=== PATIENT | male | born 1990 | race African-American/Black ===

== ENCOUNTER 2017-10-11 06:02 | Emergency (ER) | payer MEDICARE, MEDICAID ==
[2017-10-11 06:35] LABS: #Basophils 0.1 thou/uL (0.0-0.2); #Eosinphils 0.1 thou/uL (0.0-0.7); #Lymphocytes 3.6 thou/uL (1.20-3.40); #Monocytes 0.8 thou/uL (0.11-0.59); %Basophils 1.2 % (0.0-1.0); %Eosinophils 1.2 % (0.0-10.0); %Lymphocytes 41.7 % (21.0-51.0); %Monocytes 9.7 % (0.0-10.0); Hematocrit 48.1 % (42.0-52.0); Mean Platelet Volume 7.8 fL (7.4-10.4); Red Blood Cell (RBC) Count 5.71 mill/uL (4.70-6.10); White Blood Cell (WBC) Count 8.7 thou/uL (4.8-10.8)
[2017-10-11 06:49] LABS: ALT (SGPT) 24 U/L (8-55); AST (SGOT) 19 U/L (5-34); Alkaline Phosphatase 84 U/L (40-150); Anion Gap 14 mmol/L (10-20); BUN (Urea Nitrogen) 12 mg/dL (8.9-20.6); Bilirubin, Total 0.4 mg/dL (0.2-1.2); CK (CPK) 168 U/L (30-200); Calc. Creatinine Clearance 0 mL/min (70-130); Calcium 9.7 mg/dL (7.8-10.44); Carbon Dioxide 24 mmol/L (22-29); Chloride 105 mmol/L (98-107); Estimated GFR-MDRD 79; Globulin 4.2 g/dL (2.4-3.5); Protein, Total 8.5 g/dL (6.0-8.3)
[2017-10-11 06:53] LABS: Troponin I Less than 0.010 ng/mL (< 0.028)
--- NOTE | 2017-10-11 07:17 | RAD ---
PORTABLE CHEST 1 VIEW: Date: 10/11/17 Time: 0619 hours HISTORY: Chest pain, difficulty breathing. FINDINGS: Comparison made with exam of 03/12/11. The heart size is normal. The lungs are well expanded without focal areas of consolidation, pneumotho rax, or pleural effusions. IMPRESSION: No radiographic evidence of acute cardiopulmonary process. POS: OFF
== END 2017-10-11 08:32 | disposition home or self-care (01) ==
LOC: ERS 06:02
DX: R07.9 Chest pain, unspecified (principal)
CPT/HCPCS: 71010; 80053; 82550; 82553; 84484; 85025; 85379; 93005; 94760